=== PATIENT | male | born 1940 | race Caucasian/White ===

== ENCOUNTER 2023-10-01 14:22 | Observation (INO) ==
[2023-10-01 16:50] LABS: BASOPHILS # (AUTO) 0.1 X10^3/uL (0.0-0.1); BASOPHILS % (AUTO) 1.2 % (0.2-1.0); EOSINOPHILS # (AUTO) 0.1 x10^3/uL (0.0-0.2); EOSINOPHILS % (AUTO) 1.8 % (0.9-2.9); HEMATOCRIT 38.3 % (42.0-54.0); HEMOGLOBIN 12.9 g/dL (13.5-18.0); LYMPHOCYTES # (AUTO) 1.8 X10^3/uL (1.3-2.9); LYMPHOCYTES % (AUTO) 27.1 % (21.0-51.0); MEAN CORPUSCULAR HEMOGLOBIN 27.6 pg (27.0-34.0); MEAN CORPUSCULAR HGB CONC 33.7 g/dL (33.0-35.0); MEAN CORPUSCULAR VOLUME 81.8 fL (80.0-100.0); MEAN PLATELET VOLUME 6.7 fL (7.4-11.0); MONOCYTES # (AUTO) 0.5 x10^3/uL (0.3-0.8); MONOCYTES % (AUTO) 7.6 % (0.0-13.0); NEUTROPHILS # (AUTO) 4.1 x10^3/uL (2.2-4.8); NEUTROPHILS % (AUTO) 62.3 % (42.0-75.0); PLATELET COUNT 261 X10^3/uL (150.0-450.0); RED BLOOD COUNT 4.68 X10^6/uL (4.7-6.0); RED CELL DISTRIBUTION WIDTH 14.5 % (11.6-16.5); WHITE BLOOD COUNT 6.7 X10^3/uL (3.6-10.0)
[2023-10-01 17:07] LABS: ALANINE AMINOTRANSFERASE 24 Units/L (12-78); ALBUMIN 2.9 g/dL (3.4-5.0); ALKALINE PHOSPHATASE 90 Units/L (46-116); ASPARTATE AMINO TRANSFERASE 18 Units/L (15-37); BLOOD UREA NITROGEN 10 mg/dL (7-18); CHLORIDE 103 mmol/L (98-107); COR CA(FOR HYPOALB) 8.9 mg/dL (8.5-10.1); COR NA(FOR HYPERGLY) 141 mmol/L (136-145); CREATININE 1.11 mg/dL (0.70-1.30); GLUCOSE 214 mg/dL (65-99); POTASSIUM 4.1 mmol/L (3.5-5.1); SODIUM 138 mmol/L (136-145); TOTAL PROTEIN 6.1 g/dL (6.4-8.2); eGFR NON BLACK RACES > 60 (>60)
[2023-10-01] MEDS: HALDOL INJ IM PRN (21:55)
--- NOTE | 2023-10-02 02:02 | RAD ---
EXAM:CHEST, 1 VIEWHISTORY:AMS;COMPARISON:None available.FINDINGS:The trachea is midline. The cardiac silhouette is unremarkable. Calcified hilar and mediastinal nodes indicative of old granulomatous disease. The lungs are clear without focal infiltrate or effusion. The bony thorax is unremarkable.IMPRESSION:No acute cardiopulmonary disease.THIS IS AN ELECTRONICALLY VERIFIED FINAL REPORT10/02/2023 1:59 AM - Electronically signed by Russ Zuñiga MD
[2023-10-02] MEDS: NS 1,000 ML IV 1,000 ML IV ONE (04:16)
[2023-10-02] MEDS: NS 1,000 ML IV 1,000 ML IV SCH (05:37)
[2023-10-02 06:20] LABS: BASOPHILS % (AUTO) 0.9 % (0.2-1.0); EOSINOPHILS # (AUTO) 0.1 x10^3/uL (0.0-0.2); EOSINOPHILS % (AUTO) 1.7 % (0.9-2.9); HEMATOCRIT 39.3 % (42.0-54.0); HEMOGLOBIN 13.2 g/dL (13.5-18.0); LYMPHOCYTES # (AUTO) 1.5 X10^3/uL (1.3-2.9); LYMPHOCYTES % (AUTO) 29.6 % (21.0-51.0); MEAN CORPUSCULAR HEMOGLOBIN 27.3 pg (27.0-34.0); MEAN CORPUSCULAR HGB CONC 33.6 g/dL (33.0-35.0); MEAN CORPUSCULAR VOLUME 81.3 fL (80.0-100.0); MEAN PLATELET VOLUME 6.8 fL (7.4-11.0); MONOCYTES # (AUTO) 0.4 x10^3/uL (0.3-0.8); MONOCYTES % (AUTO) 8.5 % (0.0-13.0); NEUTROPHILS % (AUTO) 59.3 % (42.0-75.0); PLATELET COUNT 252 X10^3/uL (150.0-450.0); RED BLOOD COUNT 4.83 X10^6/uL (4.7-6.0); RED CELL DISTRIBUTION WIDTH 14.4 % (11.6-16.5)
[2023-10-02 06:34] LABS: ALANINE AMINOTRANSFERASE 22 Units/L (12-78); ALBUMIN 2.9 g/dL (3.4-5.0); ALKALINE PHOSPHATASE 91 Units/L (46-116); ASPARTATE AMINO TRANSFERASE 23 Units/L (15-37); BLOOD UREA NITROGEN 7 mg/dL (7-18); CARBON DIOXIDE 25.4 mmol/L (21-32); CHLORIDE 105 mmol/L (98-107); COR CA(FOR HYPOALB) 8.9 mg/dL (8.5-10.1); COR NA(FOR HYPERGLY) 143 mmol/L (136-145); CREATININE 0.85 mg/dL (0.70-1.30); GLUCOSE 169 mg/dL (65-99); POTASSIUM 3.7 mmol/L (3.5-5.1); SODIUM 141 mmol/L (136-145); TOTAL PROTEIN 6.2 g/dL (6.4-8.2); eGFR NON BLACK RACES > 60 (>60)
[2023-10-02] MEDS ORDERED: CONSULT PHARMACY - POTASSIUM & MAGNESIUM XX SCH (07:00)
--- NOTE | 2023-10-02 08:28 | DR.H&P ---
H&P History & Physical for Day of: H&P Date: 10/01/23 Chief Complaint Chief Complaint: Altered Mental Status, Increasing behaviors, Not eating Allergies Allergies Allergy/AdvReac Type Severity Reaction Status Date / Time No Known Drug Allergies Allergy Verified 10/01/23 19:30 [NKDA] History of Present Illness History of Present Illness: the patient is an 83-year-old white male who is brought to the office accompanied by his daughter and . Patient has d ementia. Patient is having increasing behaviors including agitation. Patient is noncompliant with medication therapy. Refuses to take medication. Daughter states that he will remove his Exelon patch. Patient is not eating and family's states he is becoming more lethargic. Past Medical History Past Medical History: Alzheimers and Diabetes Family History Family Medical History: Cancer Social History Does patient currently use any type of tobacco product: No Have you used tobacco products in the last 12 months: No Type of Tobacco Use: None Alcohol Use: None Drug Use: None Medications Home Medications: Home Medications Medication Instructions Recorded Confirmed Type quetiapine 25 mg tablet 25 mg PO QHS 10/01/23 10/01/23 History rivastigmine 4.6 mg/24 hour 1 patch topical DAILY 10/01/23 10/01/23 History transdermal patch Labs 10/02/23 05:32 10/02/23 05:32 Labs: Laboratory WBC 5.0 X10^3/uL (3.6-10.0) 10/02/23 05:32 RBC 4.83 X10^6/uL (4.7-6.0) 10/02/23 05:32 Hgb 13.2 g/dL (13.5-18.0) L 10/02/23 05:32 Hct 39.3 % (42.0-54.0) L 10/02/23 05:32 MCV 81.3 fL (80.0-100.0) 10/02/23 05:32 MCH 27.3 pg (27.0-34.0) 10/02/23 05:32 MCHC 33.6 g/dL (33.0-35.0) 10/02/23 05:32 RDW 14.4 % (11.6-16.5) 10/02/23 05:32 Plt Count 252 X10^3/uL (150.0-450.0) 10/02/23 05:32 MPV 6.8 fL (7.4-11.0) L 10/02/23 05:32 Neut % (Auto) 59.3 % (42.0-75.0) 10/02/23 05:32 Lymph % (Auto) 29.6 % (21.0-51.0) 10/02/23 05:32 [place] % (Auto) 8.5 % (0.0-13.0) 10/02/23 05:32 Eos % (Auto) 1.7 % (0.9-2.9) 10/02/23 05:32 Baso % (Auto) 0.9 % (0.2-1.0) 10/02/23 05:32 Neut # (Auto) 3.0 x10^3/uL (2.2-4.8) 10/02/23 05:32 Lymph # (Auto) 1.5 X10^3/uL (1.3-2.9) 10/02/23 05:32 [place] # (Auto) 0.4 x10^3/uL (0.3-0.8) 10/02/23 05:32 Eos # (Auto) 0.1 x10^3/uL (0.0-0.2) 10/02/23 05:32 Baso # (Auto) 0.0 X10^3/uL (0.0-0.1) 10/02/23 05:32 Absolute Nucleated RBC 0.1 /100WBC 10/02/23 05:32 Sodium 141 mmol/L (136-145) 10/02/23 05:32 Corrected Sodium 143 mmol/L (136-145) 10/02/23 05:32 Potassium 3.7 mmol/L (3.5-5.1) 10/02/23 05:32 Chloride 105 mmol/L (98-107) 10/02/23 05:32 Carbon Dioxide 25.4 mmol/L (21-32) 10/02/23 05:32 BUN 7 mg/dL (7-18) 10/02/23 05:32 Creatinine 0.85 mg/dL (0.70-1.30) 10/02/23 05:32 Est GFR (MDRD) Af Amer > 60 (>60) 10/02/23 05:32 Est GFR (MDRD) Non-Af > 60 (>60) 10/02/23 05:32 Glucose 169 mg/dL (65-99) H 10/02/23 05:32 Calcium 8.0 mg/dL (8.5-10.1) L 10/02/23 05:32 Corrected Calcium 8.9 mg/dL (8.5-10.1) 10/02/23 05:32 Magnesium 1.7 mg/dL (2.0-2.9) L 10/02/23 05:32 Total Bilirubin 0.60 mg/dL (0.2-1.0) 10/02/23 05:32 AST 23 Units/L (15-37) 10/02/23 05:32 ALT 22 Units/L (12-78) 10/02/23 05:32 Alkaline Phosphatase 91 Units/L (46-116) 10/02/23 05:32 Total Protein 6.2 g/dL (6.4-8.2) L 10/02/23 05:32 Albumin 2.9 g/dL (3.4-5.0) L 10/02/23 05:32 Globulin 3.3 g/dL (2.5-4.5) 10/02/23 05:32 Albumin/Globulin Ratio 0.9 Ratio (1.1-2.1) L 10/02/23 05:32 Review of Systems Constitutional: See HPI Eyes: No Symptoms Reported ENT: No Symptoms Reported Respiratory: No Symptoms Reported Cardiovascular: No Symptoms Reported Gastrointestinal: See HPI and Other Genitourinary: No Symptoms Reported Musculoskeletal: No Symptoms Reported Skin: No Symptoms Reported Neurological: See HPI and Confusion Physical Exam Vital Signs: Vital Signs Temperature 97.9 F Pulse Rate [Left] 78 Respiratory Rate 21 Blood Pressure [Left Arm] 107/64 O2 Sat by Pulse Oximetry 99 Oriented: Person and Place Eyes: Normal Ear: Normal Nose: Normal Throat: Normal Respiratory: Clear Throughout Cardiovascular: Normal : Normal Auscultation: Bowel Sounds: Normal Palpation: Normal Tenderness: Normal Skin: Normal Musculoskeletal: Normal Psychiatric: Agitation Mood Description: Flat and Anxious Speech Pattern: Clear Assessment/Plan (1) Dementia: Narrative Support Text: With increased agitation and behaviors Plan: Possible transfer to [facility] Status: Acute (2) Diabetes: Narrative Support Text: Monitor Blood sugar Status: Acute (3) Lack of appetite: Narrative Support Text: Weight loss Status: Acute
[2023-10-02 10:22] VITALS: BMI 19.8
[2023-10-02] MEDS: LOVENOX INJ 40 MG SYR SC SCH (10:44)
[2023-10-02] MEDS: EXELON PATCH TD SCH (10:44)
[2023-10-02] MEDS: SEROquel TAB 25 mg PO SCH (10:44)
[2023-10-02 12:38] VITALS: BP 146/68; PULSE 74; RESP 20; TEMP 98.1; O2SAT 96
--- NOTE | 2023-10-03 16:29 | PCM.DCPLAN ---
DISCHARGE SUMMARY Admission Date Date of Admission: 10/01/23 Discharge Date Discharge Date: 10/02/23 Admission Diagnoses (1) Dementia: Status: Acute (2) Diabetes: Status: Acute (3) Lack of appetite: Status: Acute Discharge Diagnoses Discharge Diagnosis: Same as admission Discharge Medications Discharge Medications: Home Medication List quetiapine 25 mg tablet 25 mg PO QHS 10/01/23 [History] rivastigmine 4.6 mg/24 hour transdermal patch 1 patch topical DAILY 10/01/23 [History] Prescriptions: Hospital Course Vital Signs: The patient is an 83-year-old white male who was a direct admit from Dr. Flores's office after presenting with symptoms of dementia with behavioral disturbance. Spouse and daughter are primary historians and reported that patient has been having increased agitation at home, refusing medications and meals. Patient denied abdominal pain, n/v/d, fever. Patient has a past medical history of DM type 2. Upon admission, patient's chest xray showed no acute findings. Labs: wbc 4.68, hgb 12.9, BUN 10/Creatinine 1.11. Home medication were resumed and he was treated with IV hydration. Admission plan were for possible admit to senior behavioral unit. During stay, patient was noted to be combative with staff and placed in four point soft restraints. He was treated with IM haldol prn. During one combative episode, patient did sustain a skin tear to lower right and left arm and was treated with wound care therapy. We ordered CT head, but were unable to obtain due to patient's behavioral disturbance. Morning labs : WBC 4.83, Hgb 13.2, BUN 7/Creatinine 0.85. Morning vitals: BP 146/68-74-98.1F-20- 96% room air. Spouse and daughter requests patient's discharge home to resume home care. They are agreeable to provide all needed care. Overall, patient is stable. We will allow him to discharge home. Spouse and family were provided education on needed services in the home- all recommended services were refused at time of discharge. Please see discharge plan for list of discharge medications and modifications that we made, electronic medical record for diagnostic tests and labs. Patient will need to follow up with PCP. He has an appointment with Nighat Fernández NP at Dr. Flores's office scheduled for 10/11/23. Family was instructed to return patient to the ER if condition changed or worsened unexpectedly. Latest Lab Results: Laboratory Last Values WBC 5.0 X10^3/uL (3.6-10.0) 10/02/23 05:32 RBC 4.83 X10^6/uL (4.7-6.0) 10/02/23 05:32 Hgb 13.2 g/dL (13.5-18.0) L 10/02/23 05:32 Hct 39.3 % (42.0-54.0) L 10/02/23 05:32 MCV 81.3 fL (80.0-100.0) 10/02/23 05:32 MCH 27.3 pg (27.0-34.0) 10/02/23 05:32 MCHC 33.6 g/dL (33.0-35.0) 10/02/23 05:32 RDW 14.4 % (11.6-16.5) 10/02/23 05:32 Plt Count 252 X10^3/uL (150.0-450.0) 10/02/23 05:32 MPV 6.8 fL (7.4-11.0) L 10/02/23 05:32 Neut % (Auto) 59.3 % (42.0-75.0) 10/02/23 05:32 Lymph % (Auto) 29.6 % (21.0-51.0) 10/02/23 05:32 [place] % (Auto) 8.5 % (0.0-13.0) 10/02/23 05:32 Eos % (Auto) 1.7 % (0.9-2.9) 10/02/23 05:32 Baso % (Auto) 0.9 % (0.2-1.0) 10/02/23 05:32 Neut # (Auto) 3.0 x10^3/uL (2.2-4.8) 10/02/23 05:32 Lymph # (Auto) 1.5 X10^3/uL (1.3-2.9) 10/02/23 05:32 [place] # (Auto) 0.4 x10^3/uL (0.3-0.8) 10/02/23 05:32 Eos # (Auto) 0.1 x10^3/uL (0.0-0.2) 10/02/23 05:32 Baso # (Auto) 0.0 X10^3/uL (0.0-0.1) 10/02/23 05:32 Absolute Nucleated RBC 0.1 /100WBC 10/02/23 05:32 Sodium 141 mmol/L (136-145) 10/02/23 05:32 Corrected Sodium 143 mmol/L (136-145) 10/02/23 05:32 Potassium 3.7 mmol/L (3.5-5.1) 10/02/23 05:32 Chloride 105 mmol/L (98-107) 10/02/23 05:32 Carbon Dioxide 25.4 mmol/L (21-32) 10/02/23 05:32 BUN 7 mg/dL (7-18) 10/02/23 05:32 Creatinine 0.85 mg/dL (0.70-1.30) 10/02/23 05:32 Est GFR (MDRD) Af Amer > 60 (>60) 10/02/23 05:32 Est GFR (MDRD) Non-Af > 60 (>60) 10/02/23 05:32 Glucose 169 mg/dL (65-99) H 10/02/23 05:32 POC Glucose (mg/dL) 153 mg/dL (65-99) H 10/02/23 11:50 Calcium 8.0 mg/dL (8.5-10.1) L 10/02/23 05:32 Corrected Calcium 8.9 mg/dL (8.5-10.1) 10/02/23 05:32 Magnesium 1.7 mg/dL (2.0-2.9) L 10/02/23 05:32 Total Bilirubin 0.60 mg/dL (0.2-1.0) 10/02/23 05:32 AST 23 Units/L (15-37) 10/02/23 05:32 ALT 22 Units/L (12-78) 10/02/23 05:32 Alkaline Phosphatase 91 Units/L (46-116) 10/02/23 05:32 Total Protein 6.2 g/dL (6.4-8.2) L 10/02/23 05:32 Albumin 2.9 g/dL (3.4-5.0) L 10/02/23 05:32 Globulin 3.3 g/dL (2.5-4.5) 10/02/23 05:32 Albumin/Globulin Ratio 0.9 Ratio (1.1-2.1) L 10/02/23 05:32
== END 2023-10-02 14:10 | disposition home or self-care (01) ==
LOC: MED/SURG
PROVIDERS: ADMIT Internal Medicine; ATTEND Internal Medicine
DX: F02.811 Dementia in other diseases classified elsewhere, unspecified severity, with agitation; Z78.1 Physical restraint status; E11.65 Type 2 diabetes mellitus with hyperglycemia; Z91.148 Patient's other noncompliance with medication regimen for other reason; S51.812A Laceration without foreign body of left forearm, initial encounter; X58.XXXA Exposure to other specified factors, initial encounter; R63.0 Anorexia; E83.42 Hypomagnesemia; G30.8 Other Alzheimer's disease; R40.4 Transient alteration of awareness; S51.811A Laceration without foreign body of right forearm, initial encounter; Y92.230 Patient room in hospital as the place of occurrence of the external cause